=== PATIENT | female | born 1985 | race Caucasian/White ===

== ENCOUNTER → 2018-12-19 | Outpatient (CLI) | payer OTHER ==
[~2018-12-19] MED LIST: DOCU100 PO; ESCI10 PO; ESCI5 PO; MAGOXI400 PO; MIDO5 PO; TRAZ50 PO; TUMS300 MG PO
== END | disposition home or self-care (01) ==
LOC: LAB 19:48 → LAB SHORT 19:48
PROVIDERS: Family Medicine
DX: Z01.419 Encounter for gynecological examination (general) (routine) without abnormal findings (principal)
CPT/HCPCS: G0145

== ENCOUNTER → 2024-10-22 | Outpatient (CLI) | payer OTHER | LOC: LAB SHORT 14:40 → LAB 14:40 | DX: R30.0 Dysuria (principal) | CPT/HCPCS: 87077; 87086; 87186 ==